=== PATIENT | male | born 1985 | race Caucasian/White ===

== ENCOUNTER 2018-02-09 08:20 | Outpatient (CLI) | payer OTHER | END 2018-02-09 10:20 | disposition home or self-care (01) | LOC: LAB 08:20 | DX: D50.0 Iron deficiency anemia secondary to blood loss (chronic) (principal); D51.3 Other dietary vitamin B12 deficiency anemia; R31.21 Asymptomatic microscopic hematuria; D50.8 Other iron deficiency anemias; D51.8 Other vitamin B12 deficiency anemias; I10 Essential (primary) hypertension; D55.0 Anemia due to glucose-6-phosphate dehydrogenase [G6PD] deficiency; D51.0 Vitamin B12 deficiency anemia due to intrinsic factor deficiency; D51.1 Vitamin B12 deficiency anemia due to selective vitamin B12 malabsorption with proteinuria; E03.8 Other specified hypothyroidism; E06.3 Autoimmune thyroiditis; R97.0 Elevated carcinoembryonic antigen [CEA]; R71.8 Other abnormality of red blood cells; R19.5 Other fecal abnormalities; R82.99 Other abnormal findings in urine; R00.8 Other abnormalities of heart beat ==

== ENCOUNTER 2018-02-09 11:51 | Outpatient (CLI) | payer OTHER | END 2018-02-09 11:56 | disposition home or self-care (01) | LOC: SONOGRAMA 11:51 | DX: E03.8 Other specified hypothyroidism (principal); D50.0 Iron deficiency anemia secondary to blood loss (chronic); D51.3 Other dietary vitamin B12 deficiency anemia; R31.21 Asymptomatic microscopic hematuria; R00.1 Bradycardia, unspecified; E06.3 Autoimmune thyroiditis; E07.89 Other specified disorders of thyroid ==

== ENCOUNTER 2018-02-12 09:14 | Outpatient (CLI) | payer OTHER | END 2018-02-12 09:23 | disposition home or self-care (01) | LOC: LAB 09:14 | DX: D50.0 Iron deficiency anemia secondary to blood loss (chronic) (principal); D51.3 Other dietary vitamin B12 deficiency anemia; R31.21 Asymptomatic microscopic hematuria; R00.1 Bradycardia, unspecified; D50.8 Other iron deficiency anemias; D51.8 Other vitamin B12 deficiency anemias; I10 Essential (primary) hypertension; D55.0 Anemia due to glucose-6-phosphate dehydrogenase [G6PD] deficiency; D51.0 Vitamin B12 deficiency anemia due to intrinsic factor deficiency; D51.1 Vitamin B12 deficiency anemia due to selective vitamin B12 malabsorption with proteinuria; E03.8 Other specified hypothyroidism; E06.3 Autoimmune thyroiditis; R97.0 Elevated carcinoembryonic antigen [CEA]; R71.8 Other abnormality of red blood cells; R19.5 Other fecal abnormalities; R82.99 Other abnormal findings in urine ==

== ENCOUNTER 2018-03-30 10:03 | Outpatient (CLI) | payer OTHER | END 2018-03-30 11:51 | disposition home or self-care (01) | LOC: LAB 10:03 | DX: D50.0 Iron deficiency anemia secondary to blood loss (chronic) (principal); D51.3 Other dietary vitamin B12 deficiency anemia; R31.21 Asymptomatic microscopic hematuria; R00.1 Bradycardia, unspecified; D68.0 Von Willebrand disease; D68.8 Other specified coagulation defects ==

== ENCOUNTER 2018-06-11 06:41 | Outpatient (CLI) | payer OTHER | END 2018-06-11 06:50 | disposition home or self-care (01) | LOC: LAB 06:41 | DX: D50.0 Iron deficiency anemia secondary to blood loss (chronic) (principal); D51.3 Other dietary vitamin B12 deficiency anemia; R31.21 Asymptomatic microscopic hematuria; R00.1 Bradycardia, unspecified; R97.0 Elevated carcinoembryonic antigen [CEA]; D50.8 Other iron deficiency anemias; D51.8 Other vitamin B12 deficiency anemias; I10 Essential (primary) hypertension; E86.0 Dehydration; I15.8 Other secondary hypertension; E06.5 Other chronic thyroiditis ==